=== PATIENT | female | born 1965 | race Caucasian/White ===

== ENCOUNTER 2016-05-01 07:27 | Emergency (ER) | payer BC ==
[~2016-05-01] VITALS: Ht 157.5 cm; Wt 80.7 kg
[~2016-05-01 07:27] MED LIST: CALTRATE 600 WI1 TAB PO; FISH OIL1 GM PO; GLUCOSAMINE CH1 EACH PO; MULTIPLE VITAM1 EACH PO; PRINIVIL20 MG PO; PROVERA5 MG PO; SYNTHROID75 MCG PO; XANAX0.5 MG PO; ZOLOFT100 MG PO
== END 2016-05-01 09:45 | disposition short-term general hospital (02) ==
LOC: ER 07:27
DX: R10.33 Periumbilical pain (principal); R10.31 Right lower quadrant pain; R19.7 Diarrhea, unspecified; R11.2 Nausea with vomiting, unspecified; I10 Essential (primary) hypertension; Z79.899 Other long term (current) drug therapy
CPT/HCPCS: J1885; J2405; Q9963